=== PATIENT | male | born 1960 | race Caucasian/White ===

== ENCOUNTER 2023-02-16 12:05 | Outpatient (CLI) | payer OTHER | END 2023-02-16 12:06 | disposition home or self-care (01) | LOC: DI 12:05 | PROVIDERS: ATTEND Student in an Organized Health Care Education/Training Program | DX: M25.572 Pain in left ankle and joints of left foot (principal); Z53.9 Procedure and treatment not carried out, unspecified reason ==

== ENCOUNTER 2023-02-20 15:13 | Outpatient (CLI) | payer OTHER ==
--- NOTE | 2023-02-20 16:44 | XRAY Report ---
PROCEDURE: Ankle 2 View RT INDICATIONS: LEFT ANKLE PAIN TECHNIQUE: 2 views of the ankle were acquired. COMPARISON: None. FINDINGS: Bones: No acute fracture or dislocation. Severe tibiotalar joint osteoarthritic changes are noted wi th extensive joint space narrowing, subchondral sclerosis and extensive subcortical cystic changes/er osion. Collapse of talar dome is also noted. Mild osteoarthritic changes are noted throughout rest of the midfoot and hindfoot. No suspicious bony lesions. Soft tissues: Moderate tibiotalar joint effusion. Diffuse ankle soft tissue swelling is seen. Achill es tendon appears normal. IMPRESSION: Severe tibiotalar joint osteoarthritic changes and suggestion of erosion in distal tibia and talar dome and deformed appearing talar dome. Moderate joint effusion and diffuse ankle soft tiss ue swelling. Finding could represent sequela from osteoarthritis, septic arthritis cannot be excluded . No acute fracture or dislocation. Reviewed by: Paresh Chavez MD on 02/20/2023 4:43 PM PDT Approved by: Paresh Chavez MD on 02/20/2023 4:43 PM PDT Station ID: [id number]
== END 2023-02-20 15:14 | disposition home or self-care (01) ==
LOC: DI 15:13
PROVIDERS: ATTEND Student in an Organized Health Care Education/Training Program
DX: M25.572 Pain in left ankle and joints of left foot (principal); M19.072 Primary osteoarthritis, left ankle and foot; M25.472 Effusion, left ankle; M79.89 Other specified soft tissue disorders